=== PATIENT | female | born 1970 ===

== ENCOUNTER 2022-11-25 15:12 | Emergency (ER) | payer OTHER ==
--- OUTSIDE RECORDS SUMMARY | 2022-11-25 15:50 | XMS REPORT | Continuity of Care Document ---
:1970 Demographics Phone Unavailable Preferred Language Unknown Marital Status Unknown Rastafarian Affiliation Unknown Race Unknown Additional Race(s) Unavailable Ethnic Group Unknown Author Organization [facility] t Address [address] [place] [id number] Care Team Providers Name Role Phone Unavailable Unavailable Unavailable Problems This patient has no known problems. Allergies, Adverse Reactions, Alerts This patient has no known allergies or adverse reactions. Medications This patient has no known medications. Procedures This patient has no known procedures. Encounters Start End Encounter Admission Attending Care Care Encounter Source Date/Time Date/Time Type Type Clinicians Facility Department ID 2017-01-07 2017-01-17 [facility] [id number] [address] [place] [address] 00:00:00 00:00:00 [facility] Results This patient has no known results.
[2022-11-25 16:10] LABS: Absolute Lymphocytes (CBC) 1.1 K/uL (0.7-4.9); Hematocrit 40.7 % (36.0-45.0); Lymphocytes % 11.2 % (15.3-44.8); MCV 87.8 fL (80-100); MPV 7.2 fL (7.6-11.3); RBC Red Blood Cell Count 4.63 M/uL (3.86-4.86)
[2022-11-25 16:12] LABS: Protime INR 0.97
[2022-11-25 16:30] LABS: ALT/SGPT 25 U/L (13-56); AST/SGOT 20 U/L (15-37); Albumin 3.9 g/dL (3.4-5.0); Alkaline Phosphatase 94 U/L (45-117); BUN Blood Urea Nitrogen 16 mg/dL (7-18); Bicarbonate 27 mEq/L (21-32); Bilirubin Direct 0.2 mg/dL (0-0.2); Bilirubin Indirect, Calculated 0.3 mg/dL (0.2-0.8); Bilirubin Total 0.5 mg/dL (0.2-1.0); Glomerular Filtration Rate 70 ml/min (=/>90); Glucose Level 87 mg/dL (74-106); Potassium 3.3 mEq/L (3.5-5.1); Protein, Total 8.1 g/dL (6.4-8.2); Sodium Level 141 mEq/L (136-145)
[2022-11-25] MEDS ORDERED: NA CHLORIDE 0.9% 500 ML ONE (18:02)
--- NOTE | 2022-11-25 19:28 | RAD REPORT ---
EXAM DESCRIPTION: RAD - Knee Left 3 View - 11/25/2022 6:57 pm CLINICAL HISTORY: Left knee pain FINDINGS: No fracture or dislocation is seen. No bone or joint abnormality displayed
--- NOTE | 2022-11-25 19:38 | EDPHYS ---
Physician Documentation [facility] Name: Mya Cox Age: 52 yrs Sex: Female : 1970 Arrival Date: 11/25/2022 Time: 15:12 Bed 3 Private MD: ED Physician Cipriano Cummings HPI: 11/25 20:29 This 52 yrs old Female presents to ER via EMS with unknown complaint. kdr 20:29 Patient was brought to the ED by the police. She was found outside in a apparently kdr altered mental status state. It was unclear whether there was alcohol or other medications found. There may have been a report of methamphetamines in her purse. Apparently the patient was taken to snf. After arrival there she began screaming and being combative. She also was complaining of pain in her left knee where there was a abrasion on the patella. Given her altered mental status, the police wanted her transported to the ER for evaluation.. Onset: The symptoms/episode began/occurred acutely, just prior to arrival. Severity of symptoms: At their worst the symptoms were mild moderate in the emergency department the symptoms are unchanged. It is unknown whether or not the patient has had similar symptoms in the past. It is unknown whether or not the patient has recently seen a physician. Historical: - PMHx: 15:17 Depressive disorder; Anxiety; ko1 - Immunization history:: Adult Immunizations unknown. - Social history:: Smoking status: Patient reports the use of cigarette tobacco products, unknown amount. ROS: 20:29 Constitutional: Patient is uncooperative with the exam. And is speaking incoherently. kdr Eyes: Negative for injury, pain, redness, and discharge. Exam: 20:29 Constitutional: This is a well developed, well nourished patient who is awake, kdr confused with poor speech. She is not complaining of any pain at this time. Patient's not vomiting. Pupils are equal but sluggish Head/Face: Normocephalic, atraumatic. No contusions or hematomas Neck: Trachea midline, no thyromegaly or masses palpated, and no cervical lymphadenopathy. Supple, full range of motion without nuchal rigidity, or vertebral point tenderness. No Meningismus. Chest/axilla: Normal chest wall appearance and motion. Nontender with no deformity. No lesions are appreciated. Cardiovascular: Regular rate and rhythm with a normal S1 and S2. No gallops, murmurs, or rubs. Normal PMI, no JVD. No pulse deficits. 20:29 Constitutional: Patient is in a restrictive garment that crosses her legs and makes it impossible for her to kick or move. She can wiggle her lower extremities and circulation appears to be good to her feet and toes. Her hands and upper extremities are in handcuffs. She is handcuffed to her upper torso restrictive garment. Patient was cooperative with the exam follow commands appropriately. She does appear to be intoxicated or under the influence of mind altering substance. Vital Signs: 15:20 BP 129 / 98; Pulse 122; Resp 19; Temp 98; Pulse Ox 99% ; ko1 16:45 BP 120 / 85; Pulse 108; Resp 16; Pulse Ox 99% ; ko1 18:03 BP 139 / 98; Pulse 89; Resp 20; Pulse Ox 99% ; ko1 19:14 BP 128 / 89; Pulse 72; Resp 16; Pulse Ox 99% ; jb4 MDM: 19:37 Patient medically screened. kdr 20:29 Data reviewed: vital signs, nurses notes. ED course: Over the course of the patient kdr stay in the ED, she became more lucid and cooperative with the police and the nursing staff. She did not have any focal complaint other than her left knee. X-ray of her knee was negative. Patient did not complain of any headache or any injury anywhere other than her knee. Patient did not have any change in her neurologic status while in the ED.. 11/25 15:35 Order name: Acetaminophen; Complete Time: 17:34 [facility] 11/25 15:35 Order name: Basic Metabolic Panel; Complete Time: 17:34 [facility] 11/25 15:35 Order name: CBC with Diff; Complete Time: 16:31 [facility] 11/25 15:35 Order name: ETOH Level; Complete Time: 17:34 [facility] 11/25 15:35 Order name: Hepatic Function; Complete Time: 17:34 [facility] 11/25 15:35 Order name: PT-INR; Complete Time: 16:31 [facility] 11/25 15:35 Order name: Salicylate; Complete Time: 17:34 [facility] 11/25 18:13 Order name: Knee Left 3 View XRAY; Complete Time: 19:35 [facility] 11/25 15:35 Order name: IV Saline Lock; Complete Time: 16:02 kdr 11/25 15:35 Order name: Labs collected and sent; Complete Time: 16:02 kdr 11/25 15:35 Order name: Suicide Screening ([facility]); Complete Time: 16:02 kdr Administered Medications: 17:55 Drug: NS 0.9% IV 500 ml Route: IV; Rate: bolus; Site: left antecubital; dd1 19:56 Follow up: IV Status: Completed infusion; IV Intake: 500ml rv Disposition Summary: 11/25/22 19:37 Discharge Ordered Location: Home kdr Problem: new kdr Symptoms: have improved kdr Condition: Stable kdr Diagnosis - Poly substance abuse, left knee pain kdr - Altered mental status, unspecified kdr Followup: kdr - With: Private Physician - When: 2 - 3 days - Reason: If symptoms return, Further diagnostic work-up, Recheck today's complaints, Continuance of care, Re-evaluation by your physician Discharge Instructions: - Discharge Summary Sheet kdr - Confusion kdr - Substance Use Disorder kdr - Acute Knee Pain, Adult, [id number] kdr Forms: - Medication Reconciliation Form kdr - Thank You Letter kdr - Patient Portal Instructions kdr Signatures: Dispatcher [employer] Cipriano Fischer MD MD kdr Shirley Huang RN RN ko1 Duane Qiu RN RN dd1 Parish Lemus RN rv
--- NOTE | 2022-11-25 19:38 | ER ---
Nurse's Notes [facility] Name: Mya Cox Age: 52 yrs Sex: Female : 1970 Arrival Date: 11/25/2022 Time: 15:12 Bed 3 Private MD: Diagnosis: Poly substance abuse, left knee pain;Altered mental status, unspecified Presentation: 11/25 15:14 Chief complaint: EMS states: police picked her up for possession and took her to senior care, ko1 she began screaming and banging her head in her cell, complaining of left knee pain, there is an abrasion. Police state when she is cleared medically she can be transported to [facility]. Coronavirus screen: At this time, the client does not indicate any symptoms associated with coronavirus-19. Ebola Screen: No symptoms or risks identified at this time. Initial Sepsis Screen: Does the patient meet any 2 criteria? No. Patient's initial sepsis screen is negative. Does the patient have a suspected source of infection? No. Patient's initial sepsis screen is negative. Risk Assessment: Do you want to hurt yourself or someone else? Patient reports no desire to harm self or others. Onset of symptoms was November 25, 2022. Care prior to arrival: Medication(s) given: Ativan 1mg IM. Transition of care: patient was not received from another setting of care. 15:14 Method Of Arrival: EMS: [facility] ko1 15:14 Acuity: VEE 3 ko1 Triage Assessment: 15:17 General: Appears unkempt, Behavior is agitated, anxious, restless, uncooperative. Pain: ko1 Complains of pain in left knee. Historical: - PMHx: 15:17 Depressive disorder; Anxiety; ko1 - Immunization history:: Adult Immunizations unknown. - Social history:: Smoking status: Patient reports the use of cigarette tobacco products, unknown amount. Screenin:20 [facility] ED Fall Risk Assessment (Adult) History of falling in the last 3 months, ko1 including since admission No falls in past 3 months (0 pts) Confusion or Disorientation No (0 pts) Intoxicated or Sedated Yes (3 pts) Impaired Gait No (0 pts) Mobility Assist Device Used No (0 pt) Altered Elimination No (0 pt) Score/Fall Risk Level 3 or more points = High Risk Oriented to surroundings, Maintained a safe environment, Educated pt \T\ family on fall prevention, incl call for assistance when getting out of bed, Assessed \T\ reinforced patient's understanding of fall precautions, Provided non-skid footwear, Hourly rounding (assess needs \T\ fall precautionary measures) done, Used ambulatory aids as needed (educated on \T\ assisted with), Used gait belt as appropriate Implemented a Fall Risk Plan of Care, Utilized family, sitter, or virtual senior marketing specialist as indicated. Abuse screen: Denies threats or abuse. Denies injuries from another. Nutritional screening: No deficits noted. Tuberculosis screening: No symptoms or risk factors identified. Assessment: 15:20 Neuro: Beckford Agitation-Sedation Scale (RASS): +1 Restless. Cardiovascular: No ko1 deficits noted. Respiratory: No deficits noted. GI: No deficits noted. : No deficits noted. EENT: No deficits noted. Derm: No deficits noted. Musculoskeletal: Reports pain in left knee. Injury Description: Abrasion sustained to left knee. 19:14 Reassessment: Pt is resting in bed with eyes closed, respirations are even and jb4 unlabored with no s/s of pain or distress noted. Law enforcement remains at the bedside. Vital Signs: 15:20 BP 129 / 98; Pulse 122; Resp 19; Temp 98; Pulse Ox 99% ; ko1 16:45 BP 120 / 85; Pulse 108; Resp 16; Pulse Ox 99% ; ko1 18:03 BP 139 / 98; Pulse 89; Resp 20; Pulse Ox 99% ; ko1 19:14 BP 128 / 89; Pulse 72; Resp 16; Pulse Ox 99% ; jb4 ED Course: 15:14 Patient arrived in ED. ko1 15:14 Shirley Huang, RN is Primary Nurse. ko1 15:17 Triage completed. ko1 15:17 Arm band placed on right wrist. Patient placed in an exam room, on a stretcher, on ko1 cardiac/vascular sonographer, Patient notified of wait time. 15:19 Mu Pinto MD is Attending Physician. rt 15:19 Attending Physician role handed off by Mu Pinto MD kdr 15:19 Cipriano Cummings MD is Attending Physician. kdr 15:20 Patient has correct armband on for positive identification. Bed in low position. Call ko1 light in reach. Side rails up X2. [place] [employer] at bedside. Provided Education on: NA. Pulse ox on. NIBP on. Visitors limited. 16:02 Acetaminophen Sent. ko1 16:03 Basic Metabolic Panel Sent. ko1 16:03 CBC with Diff Sent. ko1 16:03 ETOH Level Sent. ko1 16:03 Hepatic Function Sent. ko1 16:03 PT-INR Sent. ko1 16:03 Salicylate Sent. ko1 16:03 Inserted saline lock: 20 gauge in left antecubital area, using aseptic technique. Blood ko1 collected. 18:58 Knee Left 3 View XRAY In Process Unspecified. EDMS 19:56 No provider procedures requiring assistance completed. IV discontinued, intact, rv bleeding controlled, No redness/swelling at site. Pressure dressing applied. Administered Medications: 17:55 Drug: NS 0.9% IV 500 ml Route: IV; Rate: bolus; Site: left antecubital; dd1 19:56 Follow up: IV Status: Completed infusion; IV Intake: 500ml rv Medication: 19:56 VIS not applicable for this client. rv Intake: 19:56 IV: 500ml; Total: 500ml. rv Outcome: 19:37 Discharge ordered by . kdr 19:56 Discharged to Law Enforcement rv 19:56 Condition: good 19:56 Discharge instructions given to patient, Instructed on discharge instructions, follow up and referral plans. Demonstrated understanding of instructions, follow-up care. 19:56 Patient left the ED. rv Signatures: Dispatcher [employer] EDMS Cipriano Cummings MD MD kdr Vasile Stephenson, RN RN jb4 Parish Lemus RN RN rv Shirley Huang RN RN ko1 Mu Pinto MD MD rt Duane Qiu, JASMYN RN dd1
[2022-11-25 20:16] VITALS: TEMP 98; O2SAT 99
[2022-11-25 20:20] VITALS: BP 128/89
== END 2022-11-25 19:56 | disposition home or self-care (01) ==
LOC: ER 15:12
DX: F19.10 Other psychoactive substance abuse, uncomplicated (principal); M25.562 Pain in left knee; F32.A Depression, unspecified; Z72.0 Tobacco use
CPT/HCPCS: 96361; 85025; 80048; 36415; 85610; 80076; 73562; 96360; 99284; 80143; 80179; 82077; J7040